=== PATIENT | male | born 1960 | race Caucasian/White ===

== ENCOUNTER 2023-09-12 16:33 | Emergency (ER) | payer MEDICARE, OTHER ==
[~2023-09-12] VITALS: Ht 167.6 cm; Wt 116.6 kg
[2023-09-12 17:13] VITALS: BP 143/76
[2023-09-12] MEDS ORDERED: XARELTO2.5 M1 (18:49)
[2023-09-12] MEDS ORDERED: METF500 (18:50)
== END 2023-09-12 19:00 | disposition home or self-care (01) ==
LOC: ER 16:33
DX: S83.92XA Sprain of unspecified site of left knee, initial encounter (principal); S93.402A Sprain of unspecified ligament of left ankle, initial encounter; W05.0XXA Fall from non-moving wheelchair, initial encounter; J44.9 Chronic obstructive pulmonary disease, unspecified
CPT/HCPCS: 73562-LT; 73610; 99283-25

== ENCOUNTER → 2024-02-10 | Outpatient (CLI) | payer MEDICARE, OTHER ==
[~2024-02-10] MED LIST: METF500; XARELTO2.5 M1
[2024-02-10 11:36] LABS: BASOPHILS ABSOLUTE AUTO 0.12 K/mm3 (0.00-0.23); BASOPHILS PERCENT AUTO 1 % (0-2); EOSINOPHILS ABSOLUTE AUTO 0.26 K/mm3 (0.00-0.68); EOSINOPHILS PERCENT AUTO 3 % (0-6); Hematocrit 45.1 % (37.0-53.0); Hemoglobin 14.3 g/dL (13.5-17.5); IMMATURE GRAN ABSOLUTE AUTO 0.06 K/mm3 (0.00-0.10); IMMATURE GRAN PERCENT AUTO 1 % (0-1); LYMPHOCYTES ABSOLUTE AUTO 1.62 K/mm3 (0.84-5.20); LYMPHOCYTES PERCENT AUTO 16 % (21-46); MONOCYTES ABSOLUTE AUTO 0.78 K/mm3 (0.16-1.47); MONOCYTES PERCENT AUTO 8 % (4-13); Mean Corpuscular HGB 30.5 pg (26.0-34.0); Mean Corpuscular HGB Conc 31.7 g/dL (31.5-36.5); Mean Corpuscular Volume 96 fL (80-100); Mean Platelet Volume 11.4 fL (9.1-12.4); NEUTROPHILS ABSOLUTE AUTO 7.48 K/mm3 (1.96-9.15); NEUTROPHILS PERCENT AUTO 72 % (41-73); Platelet Count 329 K/mm3 (150-400); RDW Coefficient Variation 14.6 % (11.7-14.2); RDW Standard Deviation 51.4 fL (35.1-46.3); Red Blood Cell Count 4.69 M/mm3 (4.30-5.90); White Blood Cell Count 10.32 K/mm3 (4.00-11.30)
[2024-02-10 11:43] LABS: Albumin, Blood 3.6 g/dL (3.4-5.0); Albumin/Globulin Ratio 0.9 (0.8-1.8); Bilirubin, Total 0.3 mg/dL (0.1-1.0); Bun/Creatinine Ratio 15.7 (12.0-20.0); Calcium, Blood 9.1 mg/dL (8.5-10.1); Creatinine, Blood 0.83 mg/dL (0.60-1.20); Globulin, Blood 3.8 g/dL (2.2-4.0); Potassium, Blood 4.6 mmol/L (3.5-5.5); Total Protein, Blood 7.4 g/dL (6.4-8.2)
== END | disposition home or self-care (01) ==
LOC: LAB SHORT 10:50 → LAB 10:50
PROVIDERS: Physician Assistant
DX: E11.51 Type 2 diabetes mellitus with diabetic peripheral angiopathy without gangrene (principal); I73.9 Peripheral vascular disease, unspecified; E78.49 Other hyperlipidemia; I10 Essential (primary) hypertension
CPT/HCPCS: 80053; 83036; 85025

== ENCOUNTER → 2024-02-26 | Outpatient (CLI) | payer MEDICARE, OTHER ==
[2024-02-26 15:35] LABS: Source, Urine Voided
[2024-02-26 19:23] LABS: Appearance, Urine Hazy (Clear); Bilirubin, Urine Neg (Neg); Blood, Urine Neg (Neg); Glucose Qualitative, Urine 4+ (Neg); Ketones, Urine Neg (Neg); Leukocyte Esterase, Urine Neg (Neg); Nitrite, Urine Neg (Neg); Protein, Urine Neg (Neg); Specific Gravity, Urine 1.015 (1.003-1.022); Urobilinogen, Urine NORM (Normal)
[2024-02-26 19:43] LABS: Color, Urine Pale Yellow (P-Yellow)
[2024-02-26 19:44] LABS: Bacteria Mod /hpf; Mucus Light (0-Heavy); Red Blood Cells, Urine 0-2 /hpf (0-2); Squamous Epithelial Cells Rare /hpf (Few); White Blood Cells, Urine 0-2 /hpf (0-5); Yeast/Fungi Urine Many /hpf
[2024-02-26 20:11] LABS: Creatinine, Urine Random 47.1 mg/dL (27.00-270.00); Microalbumin, Random Urine 6.8 mg/L (0.000-20.000)
== END ==
LOC: LAB 15:33 → LAB SHORT 15:33
PROVIDERS: Physician Assistant
DX: E78.5 Hyperlipidemia, unspecified (principal)
CPT/HCPCS: 81001; 82043; 82570; 87086

== ENCOUNTER → 2024-03-15 | Outpatient (CLI) | payer MEDICARE, OTHER ==
[2024-03-15 11:06] LABS: CHOL/HDL RATIO 3.3; Cholesterol 134 mg/dL (50-200); HDL Cholesterol 41 mg/dL (>39); LDL/HDL RATIO 1.7; Low Density Lipoprotein Chol 70 mg/dL (<110); Triglycerides 117 mg/dL (30-160); Very Low Density Lipoprot Chol 23 mg/dL (6-32)
== END | disposition home or self-care (01) ==
LOC: LAB SHORT 10:52 → LAB 10:52
PROVIDERS: Physician Assistant
DX: E78.5 Hyperlipidemia, unspecified (principal)
CPT/HCPCS: 80061

== ENCOUNTER 2024-08-08 19:17 | Emergency (ER) | payer MEDICARE, OTHER ==
[~2024-08-08] VITALS: Ht 167.6 cm; Wt 117.9 kg
[2024-08-08] MEDS ORDERED: OxyCODONE HCL 5 MG TAB PO ONE (21:30)
[2024-08-08 22:15] VITALS: BP 130/72
[2024-08-08] MEDS ORDERED: Percocet 5-3251 EACH PO (22:34)
[2024-08-08] MEDS ORDERED: RX Prepack 6 Tabs Oxycodone 5mg UD ONE (22:40)
== END 2024-08-08 23:10 | disposition home or self-care (01) ==
LOC: ER 19:17
DX: S42.212A Unspecified displaced fracture of surgical neck of left humerus, initial encounter for closed fracture (principal); J44.89 Other specified chronic obstructive pulmonary disease; Z88.0 Allergy status to penicillin; Z79.01 Long term (current) use of anticoagulants; Z79.84 Long term (current) use of oral hypoglycemic drugs; Z79.899 Other long term (current) drug therapy; W05.0XXA Fall from non-moving wheelchair, initial encounter
CPT/HCPCS: 29105; 70450; 71100; 73030; 73070; 73090; 99284-25; A9270

== ENCOUNTER 2024-09-01 06:51 | Inpatient (IN) | payer MEDICARE, OTHER ==
[~2024-09-01] VITALS: Ht 167.6 cm; Wt 119.2 kg
[~2024-09-01 06:51] MED LIST changes: -METF500; +METF500 PO; +Percocet 5-3251 EACH PO
[2024-09-01] MEDS ORDERED: OxyCODONE 5 mg/Acetamin 325 mg TABLET PO ONE (08:10)
[2024-09-01 08:28] LABS: BASOPHILS PERCENT AUTO 1 % (0-2); EOSINOPHILS ABSOLUTE AUTO 0.16 K/mm3 (0.00-0.68); EOSINOPHILS PERCENT AUTO 2 % (0-6); Hemoglobin 13.3 g/dL (13.5-17.5); IMMATURE GRAN ABSOLUTE AUTO 0.06 K/mm3 (0.00-0.10); IMMATURE GRAN PERCENT AUTO 1 % (0-1); LYMPHOCYTES ABSOLUTE AUTO 1.72 K/mm3 (0.84-5.20); LYMPHOCYTES PERCENT AUTO 16 % (21-46); MONOCYTES PERCENT AUTO 9 % (4-13); Mean Corpuscular HGB 30.9 pg (26.0-34.0); Mean Corpuscular HGB Conc 32.4 g/dL (31.5-36.5); Mean Corpuscular Volume 95 fL (80-100); Mean Platelet Volume 9.8 fL (9.1-12.4); NEUTROPHILS ABSOLUTE AUTO 7.82 K/mm3 (1.96-9.15); NEUTROPHILS PERCENT AUTO 72 % (41-73); Platelet Count 425 K/mm3 (150-400); RDW Coefficient Variation 14.7 % (11.7-14.2); RDW Standard Deviation 51.5 fL (35.1-46.3); Red Blood Cell Count 4.31 M/mm3 (4.30-5.90); White Blood Cell Count 10.86 K/mm3 (4.00-11.30)
[2024-09-01 09:09] LABS: Albumin, Blood 3.3 g/dL (3.4-5.0); Albumin/Globulin Ratio 0.9 (0.8-1.8); Bilirubin, Total 0.3 mg/dL (0.1-1.0); Bun/Creatinine Ratio 21.2 (12.0-20.0); Calcium, Blood 8.9 mg/dL (8.5-10.1); Creatinine, Blood 0.85 mg/dL (0.60-1.20); Globulin, Blood 3.6 g/dL (2.2-4.0); Potassium, Blood 4.4 mmol/L (3.5-5.5); Total Protein, Blood 6.9 g/dL (6.4-8.2)
[2024-09-01] MEDS ORDERED: Dose Adjust by Pharmacy XX STA (11:23)
[2024-09-01] MEDS ORDERED: Heparin Sodium,Porcine/0.5 NS 500 ML IV SCH (11:25)
[2024-09-01] MEDS ORDERED: FLU VACC TS2024-25(6MOS UP)/PF 45 MCG/0.5 ML SYRINGE IM PRN (11:30)
[2024-09-01 11:55] LABS: International Normalized Ratio 0.96; Prothrombin Time Results 10.3 Sec (9.7-11.5)
[2024-09-01] MEDS ORDERED: Insulin Regular 100 UNIT/ML 10ML Vial SC SCH (12:00)
[2024-09-01 13:48] VITALS: BP 140/73
[2024-09-01] MEDS ORDERED: FentaNYL Citrate 50 MCG/ML 2 ML Injection IV PRN ×2 (14:45→17:00)
[2024-09-01] MEDS ORDERED: Nicotine 14 MG PATCH TOP SCH (14:52)
[2024-09-01] MEDS ORDERED: ATOR20 PO (18:24)
[2024-09-01] MEDS ORDERED: ESCI20 PO (18:25)
[2024-09-01] MEDS ORDERED: BACL10 PO (18:25)
[2024-09-01] MEDS ORDERED: GABA100 PO (18:26)
[2024-09-01] MEDS ORDERED: FARXIGA10 MG PO (18:26)
[2024-09-01] MEDS ORDERED: LATA.005SO BOTHEYES (18:27)
[2024-09-01] MEDS ORDERED: LISI20 PO (18:28)
[2024-09-01] MEDS ORDERED: NYSTOP15 GM TOP (18:28)
[2024-09-01] MEDS ORDERED: TRULICITY1.5 MG/0.1 SC (18:29)
[2024-09-01] MEDS ORDERED: Acetaminophen650 M1 PO (18:30)
[2024-09-01] MEDS ORDERED: XARELTO20 MG PO (18:30)
[2024-09-01] MEDS ORDERED: OXYC5 PO (18:33)
[2024-09-01] MEDS ORDERED: ALEVE ARTHRITI100 GM TOP (18:33)
[2024-09-01 19:28] VITALS: BP 136/85
[2024-09-01] MEDS ORDERED: OxyCODONE HCL 5 MG TAB PO PRN (23:30)
[2024-09-02] VITALS (9 sets, daily range): BP systolic 126–157; BP diastolic 68–95
[2024-09-02 01:32] LABS: BASOPHILS ABSOLUTE AUTO 0.06 K/mm3 (0.00-0.23); BASOPHILS PERCENT AUTO 1 % (0-2); EOSINOPHILS ABSOLUTE AUTO 0.14 K/mm3 (0.00-0.68); EOSINOPHILS PERCENT AUTO 1 % (0-6); Hematocrit 42.4 % (37.0-53.0); IMMATURE GRAN ABSOLUTE AUTO 0.04 K/mm3 (0.00-0.10); IMMATURE GRAN PERCENT AUTO 0 % (0-1); LYMPHOCYTES ABSOLUTE AUTO 1.89 K/mm3 (0.84-5.20); LYMPHOCYTES PERCENT AUTO 19 % (21-46); MONOCYTES PERCENT AUTO 9 % (4-13); Mean Corpuscular HGB 30.8 pg (26.0-34.0); Mean Corpuscular Volume 93 fL (80-100); NEUTROPHILS ABSOLUTE AUTO 6.95 K/mm3 (1.96-9.15); NEUTROPHILS PERCENT AUTO 70 % (41-73); Platelet Count 415 K/mm3 (150-400); RDW Coefficient Variation 14.5 % (11.7-14.2); RDW Standard Deviation 50.1 fL (35.1-46.3); Red Blood Cell Count 4.54 M/mm3 (4.30-5.90); White Blood Cell Count 9.98 K/mm3 (4.00-11.30)
[2024-09-02 01:46] LABS: Bun/Creatinine Ratio 16.2 (12.0-20.0); Calcium, Blood 9.3 mg/dL (8.5-10.1); Creatinine, Blood 0.74 mg/dL (0.60-1.20); Potassium, Blood 4.3 mmol/L (3.5-5.5)
[2024-09-02] MEDS ORDERED: Dose Adjust by Pharmacy XX STA (01:58)
[2024-09-02] MEDS ORDERED: FentaNYL Citrate 50 MCG/ML 2 ML Injection IV PRN (03:45)
[2024-09-02] MEDS ORDERED: OxyCODONE HCL 5 MG TAB PO PRN (03:45)
[2024-09-02] MEDS ORDERED: NS 1,000 ML IV ONE ×2 (07:06→07:50)
[2024-09-02] MEDS ORDERED: Heparin Sodium 1000 Units/ML 10ML MDV ONE ×2 (07:06→07:50)
[2024-09-02] MEDS ORDERED: Midazolam HCl 1MG / ML 2ML Vial ONE ×2 (07:49→08:50)
[2024-09-02] MEDS ORDERED: FentaNYL Citrate 50 MCG/ML 2 ML Injection ONE ×3 (07:49→09:21)
[2024-09-02] MEDS ORDERED: Nitroglycerin 2 MG/20 ML BTL ONE (09:22)
[2024-09-02] MEDS ORDERED: Ondansetron HCl 2 MG / ML 2ML Vial ONE (09:23)
[2024-09-02] MEDS ORDERED: Insulin Regular 100 UNIT/ML 10ML Vial SC SCH (11:30)
[2024-09-02] MEDS ORDERED: Baclofen 10 MG Tab PO PRN (14:25)
[2024-09-02] MEDS ORDERED: Apixaban 5 MG Tab PO SCH (18:00)
[2024-09-02] MEDS ORDERED: Gabapentin 100 MG Cap PO SCH (21:00)
[2024-09-02] MEDS ORDERED: Miconazole Nitrate 2% 85 GM PWD TOP SCH (21:00)
[2024-09-02] MEDS ORDERED: Latanoprost 0.005% Opth Soln 2.5 ML BOTHEYES SCH (21:00)
[2024-09-03 02:59] VITALS: BP 124/64
[2024-09-03 07:21] VITALS: BP 142/83
[2024-09-03] MEDS ORDERED: Citalopram Hydrobromide 20 MG Tab PO SCH (09:00)
[2024-09-03] MEDS ORDERED: Lisinopril 20 MG Tab PO SCH (09:00)
[2024-09-03] MEDS ORDERED: Atorvastatin 40 MG Tab PO SCH (09:00)
[2024-09-03 09:23] LABS: BASOPHILS ABSOLUTE AUTO 0.06 K/mm3 (0.00-0.23); BASOPHILS PERCENT AUTO 1 % (0-2); EOSINOPHILS ABSOLUTE AUTO 0.13 K/mm3 (0.00-0.68); EOSINOPHILS PERCENT AUTO 1 % (0-6); Hematocrit 44.1 % (37.0-53.0); Hemoglobin 14.4 g/dL (13.5-17.5); IMMATURE GRAN ABSOLUTE AUTO 0.07 K/mm3 (0.00-0.10); IMMATURE GRAN PERCENT AUTO 1 % (0-1); LYMPHOCYTES ABSOLUTE AUTO 1.45 K/mm3 (0.84-5.20); LYMPHOCYTES PERCENT AUTO 14 % (21-46); MONOCYTES ABSOLUTE AUTO 0.81 K/mm3 (0.16-1.47); MONOCYTES PERCENT AUTO 8 % (4-13); Mean Corpuscular HGB 30.3 pg (26.0-34.0); Mean Corpuscular HGB Conc 32.7 g/dL (31.5-36.5); Mean Corpuscular Volume 93 fL (80-100); NEUTROPHILS ABSOLUTE AUTO 7.59 K/mm3 (1.96-9.15); NEUTROPHILS PERCENT AUTO 75 % (41-73); RDW Coefficient Variation 14.3 % (11.7-14.2); RDW Standard Deviation 48.9 fL (35.1-46.3); Red Blood Cell Count 4.75 M/mm3 (4.30-5.90); White Blood Cell Count 10.11 K/mm3 (4.00-11.30)
[2024-09-03 09:32] LABS: Mean Platelet Volume 10.3 fL (9.1-12.4); Platelet Count 358 K/mm3 (150-400)
[2024-09-03 09:40] LABS: Bun/Creatinine Ratio 13.9 (12.0-20.0); Calcium, Blood 9.4 mg/dL (8.5-10.1); Creatinine, Blood 0.65 mg/dL (0.60-1.20); Potassium, Blood 4.5 mmol/L (3.5-5.5)
[2024-09-03 15:24] VITALS: BP 119/70
[2024-09-03 19:22] VITALS: BP 118/67
[2024-09-04 02:38] VITALS: BP 122/54
[2024-09-04 07:44] VITALS: BP 78/60
[2024-09-04 08:32] VITALS: BP 99/67
[2024-09-04 16:05] VITALS: BP 104/61
[2024-09-04 19:41] VITALS: BP 109/69
[2024-09-05 03:07] VITALS: BP 117/72
[2024-09-05 07:15] VITALS: BP 131/74
[2024-09-05] MEDS ORDERED: ELIQUIS5 M2 PO (08:06)
[2024-09-05 15:31] VITALS: BP 86/52
== END 2024-09-05 17:31 | disposition home health service (06) | DRG 252 ==
LOC: ER 06:51 → MEDS 11:27
PROVIDERS: Emergency Medicine; ADMIT Family Medicine
PROC: 067N3ZZ Dilation of Left Femoral Vein, Percutaneous Approach (ICD-10-PCS; principal; 2024-09-02)
DX: I82.412 Acute embolism and thrombosis of left femoral vein (principal); S72.92XA Unspecified fracture of left femur, initial encounter for closed fracture; Z68.41 Body mass index [BMI] 40.0-44.9, adult; I69.354 Hemiplegia and hemiparesis following cerebral infarction affecting left non-dominant side; I82.432 Acute embolism and thrombosis of left popliteal vein; J44.9 Chronic obstructive pulmonary disease, unspecified; F17.210 Nicotine dependence, cigarettes, uncomplicated; I82.512 Chronic embolism and thrombosis of left femoral vein; I82.532 Chronic embolism and thrombosis of left popliteal vein; Z88.0 Allergy status to penicillin; Z88.5 Allergy status to narcotic agent; Z88.1 Allergy status to other antibiotic agents; Z79.84 Long term (current) use of oral hypoglycemic drugs; Z79.899 Other long term (current) drug therapy; Z79.01 Long term (current) use of anticoagulants; E66.9 Obesity, unspecified; X58.XXXA Exposure to other specified factors, initial encounter
CPT/HCPCS: 36415; 76937; 80048; 80053; 82947; 83605; 85025; 85610; 85730; 93971; 97162; 97165; 97530; 99152; 99153; 99285-25; A9270; C1725; C1769; C1887; C1894; J1644; J2250; J2405; J3010; J7030; Q9967

== ENCOUNTER 2024-10-26 15:28 | Emergency (ER) | payer MEDICARE, OTHER ==
[~2024-10-26] VITALS: Ht 167.6 cm; Wt 117.9 kg
[~2024-10-26 15:28] MED LIST changes: +ALEVE ARTHRITI100 GM TOP; +ATOR20 PO; +Acetaminophen650 M1 PO; +BACL10 PO; +ELIQUIS5 M2 PO; +ESCI20 PO; +FARXIGA10 MG PO; +GABA100 PO; +LATA.005SO BOTHEYES; +LISI20 PO; +NYSTOP15 GM TOP; +OXYC5 PO; +TRULICITY1.5 MG/0.1 SC; +XARELTO20 MG PO
[2024-10-26 17:00] LABS: CORONAVIRUS COVID-19 AG Negative (NEGATIVE); INFLUENZA A AG Negative (NEGATIVE); INFLUENZA B AG Negative (NEGATIVE)
[2024-10-26 17:41] LABS: BASOPHILS PERCENT AUTO 1 % (0-2); EOSINOPHILS ABSOLUTE AUTO 0.33 K/mm3 (0.00-0.68); EOSINOPHILS PERCENT AUTO 4 % (0-6); Hematocrit 40.7 % (37.0-53.0); Hemoglobin 13.2 g/dL (13.5-17.5); IMMATURE GRAN ABSOLUTE AUTO 0.07 K/mm3 (0.00-0.10); IMMATURE GRAN PERCENT AUTO 1 % (0-1); LYMPHOCYTES ABSOLUTE AUTO 1.32 K/mm3 (0.84-5.20); LYMPHOCYTES PERCENT AUTO 16 % (21-46); MONOCYTES ABSOLUTE AUTO 1.29 K/mm3 (0.16-1.47); MONOCYTES PERCENT AUTO 15 % (4-13); Mean Corpuscular HGB 31.1 pg (26.0-34.0); Mean Corpuscular HGB Conc 32.4 g/dL (31.5-36.5); Mean Corpuscular Volume 96 fL (80-100); Mean Platelet Volume 10.3 fL (9.1-12.4); NEUTROPHILS ABSOLUTE AUTO 5.27 K/mm3 (1.96-9.15); NEUTROPHILS PERCENT AUTO 63 % (41-73); Platelet Count 341 K/mm3 (150-400); RDW Coefficient Variation 15.4 % (11.7-14.2); RDW Standard Deviation 54.3 fL (35.1-46.3); Red Blood Cell Count 4.25 M/mm3 (4.30-5.90); White Blood Cell Count 8.38 K/mm3 (4.00-11.30)
[2024-10-26 18:08] LABS: Albumin, Blood 3.1 g/dL (3.4-5.0); Albumin/Globulin Ratio 0.8 (0.8-1.8); Bilirubin, Total 0.3 mg/dL (0.1-1.0); Bun/Creatinine Ratio 18.8 (12.0-20.0); Creatinine, Blood 0.85 mg/dL (0.60-1.20); Globulin, Blood 3.7 g/dL (2.2-4.0); Potassium, Blood 4.5 mmol/L (3.5-5.5); Total Protein, Blood 6.8 g/dL (6.4-8.2)
[2024-10-26 18:15] VITALS: BP 126/58
[2024-10-26] MEDS ORDERED: CLIN150 PO (18:41)
== END 2024-10-26 19:19 | disposition home or self-care (01) ==
LOC: ER 15:28
PROVIDERS: Emergency Medicine
DX: L03.115 Cellulitis of right lower limb (principal); J06.9 Acute upper respiratory infection, unspecified; I10 Essential (primary) hypertension; J44.9 Chronic obstructive pulmonary disease, unspecified; Z88.5 Allergy status to narcotic agent; Z88.0 Allergy status to penicillin; Z88.8 Allergy status to other drugs, medicaments and biological substances; Z88.6 Allergy status to analgesic agent; Z91.018 Allergy to other foods; Z88.1 Allergy status to other antibiotic agents; Z79.84 Long term (current) use of oral hypoglycemic drugs; Z79.02 Long term (current) use of antithrombotics/antiplatelets; Z79.899 Other long term (current) drug therapy; Z79.891 Long term (current) use of opiate analgesic; Z79.1 Long term (current) use of non-steroidal anti-inflammatories (NSAID); Z79.85 Long-term (current) use of injectable non-insulin antidiabetic drugs; Z79.01 Long term (current) use of anticoagulants
CPT/HCPCS: 71045; 80053; 83880; 85025; 87428-QW; 93005; 93010; 93971; 99285-25